=== PATIENT | male | born 1955 | race Caucasian/White ===

== ENCOUNTER 2016-08-14 22:31 | Emergency (ER) | payer OTHER, MEDICAID ==
--- NOTE | 2016-08-14 22:57 | ED Physician Chart ---
Chief Complaint/HPI - Patient Information Date Seen:: 08/14/16 Time Seen:: 22:45 Chief Complaint:: Bluish discoloration of both hands since this afternoon. History of Present Illness:: Brought in by his caregiver Amanda because pt was noticed to have bluish discoloration of both hands since about 4 pm today. Pt denies any pain in hands. On further history, pt accidentally came in contact with blue food dye with his hands. Rubbing his hands on white blanklet while he is at the ER have blue dye transferred to white fibric in the blanket. Pt feels well without subjective complaint. Allergies:: NKA Vitals:: see Nurse Note. Historian:: Patient, Other (Caregiver Amanda.) Family MD/PCP:: Dr. Castro. LMP:: N/A Review:: Nurse's Note Reviewed Review of Systems - Review of Systems General/Constitutional: Other (Pt declined to go through ROS.) Past Medical History - Past Medical History Past Medical History: Dyslipidemia, Thyroid disorder, Dementia Family History: Cancer (Father) Social History: Non Smoker, No Alcohol, No Drug Use, Single, Other (lives with caregiver.) Surgical History: None Psychiatricy History: Dementia Medication: Reviewed Family Medical History - Family Member Mother History Unknown: Yes Ethnicity: Non- Physical Exam - Physical Examination General/Constitutional: Awake, Well-developed, well-nourished, Alert, No distress, Non-toxic appearing, Ambulatory Other Gen/Cons comments:: Breathes comfortably, speaks clearly, and ambulates without difficulty. Head: Atraumatic Eyes: Lids, conjuctiva normal, PERRL, EOMI Skin: No rash, No skin lesions, No ecchymosis, Well hydrated, No lymphadenopathy Other Skin comments:: There is blue dye noticed in both hands that can be removed by rubbing with white blanket. His caregiver Amanda confirmed that pt did come in contact with blue food dye this afternoon. ENMT: External ears, nose nl, Nasal exam nl, Oropharynx nl Neck: Nontender, Full ROM w/o pain, No JVD, No nuchal rigidity, No stridor Respiratory: Nl effort/Exclusion, Clear to Auscultation, No Wheeze/Rhonchi/Rales Cardio Vascular: RRR, No murmur, gallop, rubs Extremities: No tenderness or effusion, Full ROM, No edema Other Extremities comments:: Both hands have FROM. No detectable motor/sensory/vascular deficit. Good distal capillary refill. Strong peripheral pulses noticed in both UE's. Neuro/Psych: Alert/oriented (knows his name, that he is in hospital.), Mood normal, Normal gait, No focal deficits ED Septic Shock - . Is Septic Shock (SBP<90, OR Lactate>4 mmol\L) present?: No Reassessment (Disposition) - Reassessment Reassessment:: 2300 Pt remains stable. He requests to go home now. Aftercare instructions given. - Diagnosis Diagnosis:: Accidental impregnation of blue food dye in hands. - Aftercare/Follow up Instructions Aftercare/Follow-Up Instructions:: Refer to Discharge Instructions Notes:: Continue present care. May wash both hands with ample soap and water, then wipe clean all food dye from hands. F/U with PCP Dr. Castro in 1 day as needed for recheck. Return to ER immediately if any further questions/problems. Medication Prescribed:: None - Patient Disposition Discharge/Transfer:: Home Time:: 23:05 Condition at Disposition:: Stable
== END 2016-08-14 23:05 | disposition home or self-care (01) ==
LOC: ER 22:31
DX: Z76.89 Persons encountering health services in other specified circumstances (principal); E78.5 Hyperlipidemia, unspecified; E07.9 Disorder of thyroid, unspecified
CPT/HCPCS: Z7502